=== PATIENT | male | born 1955 | race Asian ===

== ENCOUNTER 2018-12-06 09:59 | Emergency (ER) | payer OTHER ==
[2018-12-06] MEDS: KETOROLAC 30 MG INJ IM (11:25)
[2018-12-06] MEDS: ACETAMINOPHEN 325 MG TAB PO (11:25)
== END 2018-12-06 12:28 | disposition home or self-care (01) ==
LOC: FTE 09:59
DX: R05 Cough (principal); I10 Essential (primary) hypertension; R09.89 Other specified symptoms and signs involving the circulatory and respiratory systems; Z79.82 Long term (current) use of aspirin
CPT/HCPCS: 96372; 99284-25

== ENCOUNTER 2018-12-09 10:13 | Inpatient (IN) | payer OTHER ==
[2018-12-09] MEDS: SODIUM CHLORIDE 0.9% 1L BAG IV* (11:10)
[2018-12-09] MEDS: CEFTRIAXONE 1 GM/50 ML (PMX) 50 ML IVPB (11:10)
[2018-12-09 11:11] LABS: WHITE BLOOD COUNT 35.8 10^3/ul (4.8-10.8)
[2018-12-09 11:11] LABS: ABNORMAL IP MESSAGE 1; HEMATOCRIT 40.8 % (42.0-52.0); HEMOGLOBIN 14.1 g/dl (14.0-18.0); MEAN CORPUSCULAR HEMOGLOBIN 29.9 pg (29.0-33.0); MEAN CORPUSCULAR HGB CONC 34.6 g/dl (32.0-37.0); MEAN CORPUSCULAR VOLUME 86.4 fl (82.0-101.0); MEAN PLATELET VOLUME 10.3 fl (7.4-10.4); NUCLEATED RED BLOOD CELLS% 0.2 /100WBC (0.0-0.0); PLATELET COUNT 257 10^3/UL (140-415); POSITIVE DIFF @See below; RED BLOOD COUNT 4.72 10^6/ul (4.70-6.10); RED CELL DISTRIBUTION WIDTH 14.3 % (11.5-14.5)
[2018-12-09 11:12] LABS: ADD MAN DIFF? YES
[2018-12-09 11:27] LABS: ALANINE AMINOTRANSFERASE 26 IU/L (13-69); ALBUMIN 3.5 g/dl (3.3-4.9); ALKALINE PHOSPHATASE 253 IU/L (42-121); ANION GAP 15 (5-13); ASPARTATE AMINO TRANSFERASE 38 IU/L (15-46); BILIRUBIN,INDIRECT 0.5 mg/dl (0-1.1); BILIRUBIN,TOTAL 2.5 mg/dl (0.2-1.3); BLOOD UREA NITROGEN 60 mg/dl (7-20); CALCIUM 8.9 mg/dl (8.4-10.2); CARBON DIOXIDE 21 mmol/L (21-31); CHLORIDE 103 mmol/L (97-110); CREATININE 3.02 mg/dl (0.61-1.24); Estimated GFR 21 mL/min (>60); GLUCOSE 135 mg/dl (70-220); POTASSIUM 3.2 mmol/L (3.5-5.1); SODIUM 139 mmol/L (135-144); TOTAL PROTEIN 7.5 g/dl (6.1-8.1)
[2018-12-09 11:28] LABS: ALBUMIN/GLOBULIN RATIO 0.87
[2018-12-09 11:31] LABS: PROTIME 13.3 Sec (11.9-14.9)
[2018-12-09 11:32] LABS: PARTIAL THROMBOPLASTIN TIME 35.3 Sec (23.0-35.0)
[2018-12-09 11:39] LABS: TROPONIN-I < 0.012 ng/ml (0.000-0.120)
[2018-12-09 12:15] LABS: ANISOCYTOSIS 1+ (0-0); BAND NEUTROPHILS #M 18.6 10^3/ul (0.0-0.6); BAND NEUTROPHILS % (M) 52 % (0-4); BURR CELLS 1+ (0-0); LYMPHOCYTES #M 0.7 10^3/ul (0.8-2.9); LYMPHOCYTES % (M) 2 % (15-51); METAMYELOCYTES %M 3 % (0-0); MONOCYTE #M 1.4 10^3/ul (0.3-0.9); MONOCYTES % (M) 4 % (0-11); MYELOCYTES #M 0.3 10^3/ul (0.0-0.0); MYELOCYTES % (M) 1 % (0-0); PLATELET ESTIMATE NORMAL; POIKILOCYTOSIS 1+ (0-0); POLYCHROMASIA 1+ (0-0); REACTIVE LYMPHOCYTES #M 0.7 10^3/ul (0.0-0.0); REACTIVE LYMPHOCYTES% (M) 2 % (0-0); SEG NEUT #M 19.9 10^3/ul (1.6-7.5); SEGMENTED NEUTROPHILS (M) % 37 % (39-77); SMUDGE%M 21 % (0-0)
[2018-12-09] MEDS: AZITHROMYCIN 500MG/NS (PMX) 250 ML IV (12:30)
[2018-12-09] MEDS ORDERED: ONDANSETRON 4 MG INJ IV (12:30)
[2018-12-09 12:36] LABS: AADO2 Arterial 587.2 mmHg (7.0-24.0); Allen Test ACCEPTAB; Arterial Base Excess -6.6 mmol/L (-3.0-3); Arterial Blood Gas Oxygen Sat 96.9 mmHG (95.0-98.0); Arterial COHb 0.3 % (0.0-3.0); Arterial Fraction of Oxyhgb 96.4 % (93.0-99.0); Arterial HCO3 16.8 mmol/L (22.0-26.0); Arterial MetHb 0.2 % (0.0-1.5); Arterial pCO2 28.2 mmhg (35-45); Blood Gas IEPAP 15/5; Blood Gas PS 10; MODE MASK - BIPAP; Site Right Radial
[2018-12-09] MEDS ORDERED: DOCUSATE SODIUM 100 MG CAP PO (13:00)
[2018-12-09] MEDS ORDERED: FAMOTIDINE 20 MG TAB PO (13:00)
[2018-12-09] MEDS ORDERED: NACL 0.9% 3 ML SYG IV (13:00)
[2018-12-09] MEDS: FAMOTIDINE 20 MG TAB PO (13:30)
[2018-12-09 15:19] LABS: ADD UMIC YES; UR ASCORBIC ACID NEGATIVE (NEGATIVE); UR BILIRUBIN (Dip) NEGATIVE (NEGATIVE); UR BLOOD (Dip) 1+ mg/dL (NEGATIVE); UR CLARITY CLEAR (CLEAR); UR COLOR AMBER (YELLOW); UR GLUCOSE (Dip) NEGATIVE (NEGATIVE); UR KETONES (Dip) NEGATIVE (NEGATIVE); UR LEUKOCYTE ESTERASE (Dip) NEGATIVE Leu/ul (NEGATIVE); UR NITRITE (Dip) NEGATIVE (NEGATIVE); UR RBC 3 /HPF (0-5); UR SPECIFIC GRAVITY (Dip) 1.012 (1.003-1.030); UR TOTAL PROTEIN (Dip) 1+ mg/dl (NEGATIVE); UR TRANSITIONAL EPI CELL FEW /HPF (NONE SEEN); UR UROBILINOGEN (Dip) 2+ mg/dL (NEGATIVE); UR WBC 5 /HPF (0-5)
[2018-12-09] MEDS: METOPROLOL 50 MG TAB PO (21:00)
[2018-12-09] MEDS: FUROSEMIDE 20 MG INJ IV (21:20)
[2018-12-09 22:55] LABS: SODIUM,URINE RANDOM 32 mmol/L (30-90)
[2018-12-09 22:59] LABS: CREATININE,URINE RANDOM 85.79 mg/dl (20-370); PROTEIN/CREAT RATIO 0.78 RATIO
[2018-12-09] MEDS: ACETAMINOPHEN 325 MG TAB PO (23:18)
[2018-12-10 05:40] LABS: ABNORMAL IP MESSAGE 1; HEMATOCRIT 36.4 % (42.0-52.0); HEMOGLOBIN 12.8 g/dl (14.0-18.0); MEAN CORPUSCULAR HEMOGLOBIN 29.9 pg (29.0-33.0); MEAN CORPUSCULAR HGB CONC 35.2 g/dl (32.0-37.0); MEAN PLATELET VOLUME 10.6 fl (7.4-10.4); NUCLEATED RED BLOOD CELLS% 0.1 /100WBC (0.0-0.0); PLATELET COUNT 238 10^3/UL (140-415); POSITIVE DIFF @See below; RED BLOOD COUNT 4.28 10^6/ul (4.70-6.10); RED CELL DISTRIBUTION WIDTH 13.9 % (11.5-14.5)
[2018-12-10 05:40] LABS: WHITE BLOOD COUNT 47.8 10^3/ul (4.8-10.8)
[2018-12-10 05:56] LABS: ADD MAN DIFF? YES
[2018-12-10 06:15] LABS: HEMOGLOBIN A1C 6.1 % (0-5.9)
[2018-12-10 06:25] LABS: B-TYPE NATRIURETIC PEPTIDE 1440 PG/ML (0-125)
[2018-12-10 06:27] LABS: ANION GAP 16 (5-13); BLOOD UREA NITROGEN 55 mg/dl (7-20); CALCIUM 8.6 mg/dl (8.4-10.2); CARBON DIOXIDE 22 mmol/L (21-31); CHLORIDE 106 mmol/L (97-110); CREATININE 2.65 mg/dl (0.61-1.24); Estimated GFR 25 mL/min (>60); GLUCOSE 125 mg/dl (70-220); POTASSIUM 3.1 mmol/L (3.5-5.1); SODIUM 144 mmol/L (135-144)
[2018-12-10 06:52] LABS: CREATINE KINASE 23 IU/L (23-200)
[2018-12-10 07:52] LABS: AADO2 Arterial 249.2 mmHg (7.0-24.0); Arterial Base Excess -1.3 mmol/L (-3.0-3); Arterial Blood Gas Oxygen Sat 93.8 mmHG (95.0-98.0); Arterial COHb 0.2 % (0.0-3.0); Arterial Fraction of Oxyhgb 93.5 % (93.0-99.0); Arterial HCO3 21.5 mmol/L (22.0-26.0); Arterial MetHb 0.1 % (0.0-1.5); Arterial pCO2 30.8 mmhg (35-45); Blood Gas IEPAP 15/5; Blood Gas PS 10; MODE MASK - BIPAP; Site Right Brachial
[2018-12-10] MEDS: ASPIRIN 81 MG TAB PO (08:36)
[2018-12-10] MEDS: METOPROLOL 50 MG TAB PO ×2 (08:36→20:40)
[2018-12-10] MEDS: CEFTRIAXONE 1 GM/50 ML (PMX) 50 ML IVPB (08:37)
[2018-12-10] MEDS ORDERED: ALLOPURINOL 100 MG TAB PO (09:00)
[2018-12-10] MEDS ORDERED: AMLODIPINE 10 MG TAB PO (09:00)
[2018-12-10 09:20] LABS: ANISOCYTOSIS 1+ (0-0); BAND NEUTROPHILS #M 15.7 10^3/ul (0.0-0.6); BAND NEUTROPHILS % (M) 33 % (0-4); ERYTHROBLAST% (NRBC) (M) 1 % (0-0); LYMPHOCYTES #M 0.4 10^3/ul (0.8-2.9); LYMPHOCYTES % (M) 1 % (15-51); MONOCYTE #M 1.4 10^3/ul (0.3-0.9); MONOCYTES % (M) 3 % (0-11); MYELOCYTES #M 0.4 10^3/ul (0.0-0.0); MYELOCYTES % (M) 1 % (0-0); PLATELET ESTIMATE NORMAL; PROMYELOCYTES #M 0.4 10^3/ul (0-0); PROMYELOCYTES % (M) 1 % (0-0); SEG NEUT #M 36.7 10^3/ul (1.6-7.5); SEGMENTED NEUTROPHILS (M) % 61 % (39-77); TARGET CELLS 1+ (0-0); TOXIC GRANULATION 1+ (0-0)
[2018-12-10] MEDS: POTASSIUM CHLORIDE 100 ML IVPB (09:55)
[2018-12-10] MEDS: FUROSEMIDE 20 MG INJ IV ×2 (09:55→17:17)
[2018-12-10] MEDS ORDERED: VANCOMYCIN IV PER PHARMACY XX (10:00)
[2018-12-10 12:31] LABS: MYELOPEROXIDASE ANTIBODY <1.0 AI; PROTEINASE-3 ANTIBODY <1.0 AI
[2018-12-10] MEDS: METHYLPREDNISOLONE 40 MG INJ IV ×3 (12:51→23:47)
[2018-12-10] MEDS: POTASSIUM CHLORIDE (SR) 20 MEQ TAB PO ×2 (12:52→20:40)
[2018-12-10] MEDS: FAMOTIDINE 20 MG TAB PO (12:52)
[2018-12-10] MEDS: VANCOMYCIN HCL 1.5 GM in SOD CHLORIDE 0.9% 250 ML IVPB (12:52)
[2018-12-10] MEDS: AZITHROMYCIN 500MG/NS (PMX) 250 ML IVPB (16:11)
[2018-12-10 16:27] LABS: ANCA SCREEN NEGATIVE (NEGATIVE)
[2018-12-10] MEDS: ACETAMINOPHEN 325 MG TAB PO (21:41)
[2018-12-10] MEDS: ZOLPIDEM 5 MG TAB PO (23:53)
[2018-12-11] MEDS: METHYLPREDNISOLONE 40 MG INJ IV ×2 (05:37→11:47)
[2018-12-11 06:14] LABS: ABNORMAL IP MESSAGE 1; HEMOGLOBIN 14.2 g/dl (14.0-18.0); MEAN CORPUSCULAR HEMOGLOBIN 29.9 pg (29.0-33.0); MEAN CORPUSCULAR HGB CONC 35.5 g/dl (32.0-37.0); MEAN CORPUSCULAR VOLUME 84.2 fl (82.0-101.0); MEAN PLATELET VOLUME 10.9 fl (7.4-10.4); NUCLEATED RED BLOOD CELLS% 0.1 /100WBC (0.0-0.0); PLATELET COUNT 269 10^3/UL (140-415); POSITIVE DIFF @See below; RED BLOOD COUNT 4.75 10^6/ul (4.70-6.10); RED CELL DISTRIBUTION WIDTH 13.7 % (11.5-14.5)
[2018-12-11 06:21] LABS: ADD MAN DIFF? YES
[2018-12-11 06:55] LABS: ANION GAP 16 (5-13); BLOOD UREA NITROGEN 65 mg/dl (7-20); CALCIUM 9.2 mg/dl (8.4-10.2); CARBON DIOXIDE 24 mmol/L (21-31); CHLORIDE 104 mmol/L (97-110); CREATININE 2.16 mg/dl (0.61-1.24); Estimated GFR 31 mL/min (>60); GLUCOSE 187 mg/dl (70-220); MAGNESIUM 2.2 mg/dl (1.7-2.5); PHOSPHORUS 5.4 mg/dl (2.5-4.9); POTASSIUM 3.5 mmol/L (3.5-5.1); SODIUM 144 mmol/L (135-144)
[2018-12-11 08:04] LABS: ANISOCYTOSIS 2+ (0-0); BAND NEUTROPHILS #M 5.1 10^3/ul (0.0-0.6); BAND NEUTROPHILS % (M) 15 % (0-4); GIANT THROMBO% (M) 2 % (0-0); LYMPHOCYTES % (M) 6 % (15-51); METAMYELOCYTES #M 0.3 10^3/ul (0.0-0.0); METAMYELOCYTES %M 1 % (0-0); MONOCYTE #M 0.6 10^3/ul (0.3-0.9); MONOCYTES % (M) 2 % (0-11); MYELOCYTES #M 0.6 10^3/ul (0.0-0.0); MYELOCYTES % (M) 2 % (0-0); PLATELET ESTIMATE NORMAL; POLYCHROMASIA 1+ (0-0); SEG NEUT #M 26.9 10^3/ul (1.6-7.5); SEGMENTED NEUTROPHILS (M) % 74 % (39-77); SMUDGE%M 2 % (0-0); TARGET CELLS 1+ (0-0); TOXIC GRANULATION 1+ (0-0)
[2018-12-11] MEDS: CEFTRIAXONE 1 GM/50 ML (PMX) 50 ML IVPB (08:30)
[2018-12-11] MEDS: ASPIRIN 81 MG TAB PO (08:30)
[2018-12-11] MEDS: METOPROLOL 50 MG TAB PO (08:31)
[2018-12-11] MEDS: FAMOTIDINE 20 MG TAB PO (13:02)
[2018-12-11] MEDS: AZITHROMYCIN 500MG/NS (PMX) 250 ML IVPB (13:03)
[2018-12-12] MEDS ORDERED: VANCOMYCIN HCL 1.25 GM in SOD CHLORIDE 0.9% 250 ML IVPB (01:00)
== END 2018-12-11 15:39 | disposition other institution (70) | DRG 871 ==
LOC: E/R 10:13 → TEL 12-10 18:53 → ICU 12:26
PROVIDERS: Internal Medicine
PROC: 5A09357 Assistance with Respiratory Ventilation, Less than 24 Consecutive Hours, Continuous Positive Airway Pressure (ICD-10-PCS; principal; 2018-12-09)
PROC: 4A133R1 Monitoring of Arterial Saturation, Peripheral, Percutaneous Approach (ICD-10-PCS; 2018-12-09)
DX: A41.9 Sepsis, unspecified organism (principal); J96.01 Acute respiratory failure with hypoxia; N17.0 Acute kidney failure with tubular necrosis; J18.9 Pneumonia, unspecified organism; E87.2 Acidosis; I12.9 Hypertensive chronic kidney disease with stage 1 through stage 4 chronic kidney disease, or unspecified chronic kidney disease; N18.9 Chronic kidney disease, unspecified; E78.5 Hyperlipidemia, unspecified; E79.0 Hyperuricemia without signs of inflammatory arthritis and tophaceous disease; Z79.82 Long term (current) use of aspirin; Z87.891 Personal history of nicotine dependence
CPT/HCPCS: 36415; 36600; 71045; 71250; 76775; 80048; 80053; 81001; 81003; 82550; 82570; 82803; 83036; 83605; 83735; 83880; 84100; 84300; 84484; 84560; 85025; 85610; 85730; 86021; 87040; 87081; 87086; 87400; 89190; 93005; 93306; 94660; 96374; 97161; 99291-25